=== PATIENT | female | born 1940 | race Caucasian/White ===

== ENCOUNTER → 2017-01-01 | Outpatient (CLI) | payer MEDICARE, BC ==
[~2017-01-01] MED LIST: ACET325 PO; ALPR0.25 PO; ALPR0.5T3 PO; CALC-197 PO; CENTTAB9 PO; COUM1TAB PO; FEXO180 PO; LORT7.5T3 PO; MECL-62 OR; PRIL20TA2 PO; SIMV40TA OR; TOPR100T15 PO; TUMS500C OR; VENL100T PO; WARF2.5 PO; ZOFR4TAB3 SL; [UNRECOGNIZED DRUG - OTHER]
[2017-01-01 07:28] LABS: AUTOMATED NEUTROPHIL # 3.2 TH/MM3 (1.8-7.7); BASOPHIL % 0.8 % (0.0-2.0); EOSINOPHIL # 0.1 TH/MM3 (0-0.4); EOSINOPHIL % 0.9 % (0.0-4.0); HEMATOCRIT 40.6 % (35.0-46.0); HEMO FLAGS DIFF FINAL; LYMPHOCYTE # 1.9 TH/MM3 (1.0-4.8); MEAN CELL VOLUME 90.8 FL (80.0-100.0); MEAN CORPUSCULAR HEMOGLOBIN 29.8 PG (27.0-34.0); MEAN CORPUSCULAR HGB CONC 32.8 % (32.0-36.0); MONO % 7.7 % (0.0-8.0); NEUT % 56.6 % (16.0-70.0); PLATELET COUNT 244 TH/MM3 (150-450); RED BLOOD COUNT 4.47 MIL/MM3 (4.00-5.30); RED CELL DISTRIBUTION WIDTH 13.3 % (11.6-17.2); WHITE BLOOD COUNT 5.6 TH/MM3 (4.0-11.0)
[2017-01-01 07:33] LABS: INTERNATIONAL NORMALIZED RATIO 2.6 RATIO; PROTHROMBIN TIME - PATIENT 29.5 SEC (9.8-11.6)
[2017-01-01 07:42] LABS: ALKALINE PHOSPHATASE 68 U/L (45-117); ALT (GPT) 26 U/L (10-53); ANION GAP 8 MEQ/L (5-15); AST (GOT) 27 U/L (15-37); BICARBONATE 31.4 MEQ/L (21.0-32.0); BLOOD UREA NITROGEN 12 MG/DL (7-18); CHLORIDE 101 MEQ/L (98-107); GLOMERULAR FILTRATION RATE 87 ML/MIN (>89); GLUCOSE,FASTING 98 MG/DL (74-99); LDL CHOLESTEROL 91 MG/DL (0-99); POTASSIUM 3.9 MEQ/L (3.5-5.1); SODIUM (NA) 140 MEQ/L (136-145); TOTAL BILIRUBIN ADULT 0.4 MG/DL (0.2-1.0)
[2017-01-01 14:34] LABS: HEMOGLOBIN A1a 0.9 %; HEMOGLOBIN A1b 1.8 %; HEMOGLOBIN P3 3.6 %
== END ==
LOC: CLAB 06:46
PROVIDERS: ATTEND Family Medicine
DX: I10 Essential (primary) hypertension (principal); R53.83 Other fatigue; E78.00 Pure hypercholesterolemia, unspecified; R53.81 Other malaise; Z13.1 Encounter for screening for diabetes mellitus; Z79.01 Long term (current) use of anticoagulants
CPT/HCPCS: 36415; 80053; 80061; 83036; 85025; 85610